=== PATIENT | male | born 1985 | race Caucasian/White ===

== ENCOUNTER 2017-03-21 19:42 | Emergency (ER) | payer OTHER ==
[~2017-03-21] VITALS: Ht 180.3 cm; Wt 108.9 kg
[~2017-03-21 19:42] MED LIST changes: -OXYC-865 PO; -PROM-110 PO
--- NOTE | 2017-03-21 19:48 | ER Report ---
History and Physical Time Seen By MD: 19:47 HPI/ROS CHIEF COMPLAINT: Fever, body aches HISTORY OF PRESENT ILLNESS: 31-year-old male presents ambulatory to the ER concerned about fever. He was seen by his primary care physician earlier today. That note was reviewed. He was started on Levaquin for suspected pneumonia. 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 Patient had chest x-ray that showed no obvious infiltrate that images reviewed. He should at a rapid influenza, which was negative per his report. Patient was told by his primary care if he had a fever over 1015 to come to the ER for evaluation. He had a fever to 102. He does not feel lightheaded, dizzy or syncopal. REVIEW OF SYSTEMS: Respiratory: As above Cardiovascular: No chest pain, no palpitations. Gastrointestinal: No vomiting, no abdominal pain. Musculoskeletal: No back pain. Allergies: Coded Allergies: No Known Drug Allergies (Unverified , 03/21/17) Home Meds Active Scripts Promethazine Hcl (PROMETHAZINE HCL) 25 Mg Tablet, 25 MG PO Q4H Y for cough and nausea suppression, #14 TAB Prov:JAMES ROGERS DO 03/21/17 Oxycodone Hcl/Acetaminophen (PERCOCET 5-325 MG TABLET) 1 Each Tablet, 1 EACH PO Q4-6H Y for pain or cough suppression, #10 Prov:KENJAMES Mart DO 03/21/17 Levofloxacin 500 Mg Tab (LEVAQUIN 500 MG TAB) 500 Mg Tablet, 500 MG PO QDAY, #7 TAB Prov:PHILIPP LI MD 03/21/17 Fluticasone Prop 50 Mcg Ns (FLONASE 50 MCG NS) 16 Gm Thermal.susp, 2 SPRAY NS DAILY, #1 BOT 11 Refills Prov:CARLOS ARCHER JR, MD 01/26/17 Discontinued Scripts Escitalopram Oxalate (ESCITALOPRAM OXALATE) 10 Mg Tablet, 10 MG PO QDAY, #30 TAB 3 Refills Prov:PHILIPP LI MD 03/21/17 Lorazepam (LORAZEPAM) 1 Mg Tab, 0.5 TAB ASDIRECTED BID Y for ANXIETY, #30 TAB Prov:PHILIPP LI MD 01/29/17 Reviewed Nurses Notes: Yes Old Medical Records Reviewed: Yes Hx Smoking: Yes (8-9 YEARS 1PPD) Smoking Status: Former Smoker Exposure to Second Hand Smoke?: No Hx Alcohol Use: Yes Constitutional Vital Sign - Last 24 Hours 03/21/17 03/21/17 03/21/17 03/21/17 19:55 20:30 21:00 21:30 Temp 100.1 Pulse 105 91 89 Resp 14 16 14 B/P (MAP) 112/97 118/58 (78) 126/69 (88) 119/61 (80) Pulse Ox 95 94 94 O2 Delivery Room Air Room Air Room Air 03/21/17 21:40 Pulse 95 Resp 16 B/P (MAP) 124/62 (82) Pulse Ox 97 O2 Delivery Room Air Physical Exam Vital signs stable, temperature 100.1, pulse ox normal General Appearance: The patient is alert, has no immediate need for airway protection and no current signs of toxicity. Ill appearing but not toxic., Anxious, mild to moderate distress HEENT: Pupils equal and round no injection. TMs normal, oropharynx without redness or exudate Respiratory: Chest is non tender, lungs are clear to auscultation. No wheezing or rails Cardiac: regular rate and rhythm Gastrointestinal: Abdomen is soft and non tender, no masses, bowel sounds normal. Musculoskeletal: Neck: Neck is supple and non tender. Extremities have full range of motion and are non tender. Skin: No rashes or lesions. DIFFERENTIAL DIAGNOSIS: After history and physical exam differential diagnosis was considered for adult fever including but not limited to viral syndromes including influenza, urinary tract infection, pneumonia and sepsis. Medical Decision Making Data Points Result Diagram: 03/21/17203903/21/172039 Laboratory Hematology Test 03/21/17 00:00 03/21/17 20:00 03/21/17 20:40 Urine Color Yellow Urine Clarity Slightly-cloudy Urine pH 7.0 pH (4.8-9.5) Urine Specific [place] 1.015 Urine Protein Negative mg/dL (NEGATIVE) Urine Glucose (UA) Negative mg/dL (NEGATIVE) Urine Ketones Negative mg/dL (NEGATIVE) Urine Blood Negative (NEGATIVE) Urine Nitrite Negative (NEGATIVE) Urine Bilirubin Negative (NEGATIVE) Urine Urobilinogen 4.0 mg/dL (0.2-1.9) Urine Leukocyte Esterase Negative (NEGATIVE) Urine RBC <1 /HPF (0-2/HPF) Urine WBC <1 /HPF (0-5/HPF) Urine Squamous Epithelial Cells None /LPF (</=FEW) Urine Bacteria Negative /HPF (NONE-FEW) Urine Mucus None /HPF (NONE-FEW) Influenza Virus Type A (PCR) Negative (NEGATIVE) Influenza Virus Type B (PCR) Negative (NEGATIVE) Group A Streptococcus Screen Negative (NEGATIVE) Red Blood Count 5.21 M/uL (4.00-5.60) Mean Corpuscular Volume 82.7 fL (80.0-96.0) Mean Corpuscular Hemoglobin 29.3 pg (26.0-33.0) Mean Corpuscular Hemoglobin Concent 35.4 g/dL (32.0-36.0) Red Cell Distribution Width 12.2 % (11.5-14.5) Mean Platelet Volume 9.0 fL (7.2-11.1) Neutrophils (%) (Auto) 21.3 % (39.4-72.5) Lymphocytes (%) (Auto) 41.5 % (17.6-49.6) Monocytes (%) (Auto) 34.8 % (4.1-12.4) Eosinophils (%) (Auto) 1.2 % (0.4-6.7) Basophils (%) (Auto) 1.2 % (0.3-1.4) Nucleated RBC Relative Count (auto) 0.7 /100WBC Neutrophils # (Auto) 0.3 K/uL (2.0-7.4) Lymphocytes # (Auto) 0.6 K/uL (1.3-3.6) Monocytes # (Auto) 0.5 K/uL (0.3-1.0) Eosinophils # (Auto) 0.0 K/uL (0.0-0.5) Basophils # (Auto) 0.0 K/uL (0.0-0.1) Nucleated RBC Absolute Count (auto) 0.01 K/uL Peripheral Blood Smear Yes Y/N Sodium Level 136 mmol/L (137-145) Potassium Level 3.7 mmol/L (3.5-5.0) Chloride Level 99 mmol/L (98-107) Carbon Dioxide Level 25 mmol/L (22-30) Blood Urea Nitrogen 11 mg/dl (9-21) Creatinine 0.90 mg/dl (0.66-1.25) Glomerular Filtration Rate Calc > 60.0 Random Glucose 98 mg/dl (75-110) Lactate 1.4 mmol/L (0.7-2.1) Calcium Level 8.7 mg/dl (8.4-10.2) Total Bilirubin 0.9 mg/dl (0.2-1.3) Aspartate Amino Transf (AST/SGOT) 25 U/L (0-35) Alanine Aminotransferase (ALT/SGPT) 42 U/L (0-56) Alkaline Phosphatase 65 U/L (0-126) C-Reactive Protein 5.7 mg/dl (<1.0) Total Protein 7.6 gm/dl (6.3-8.2) Albumin 4.0 g/dl (3.5-5.0) Chemistry Test 03/21/17 00:00 03/21/17 20:00 03/21/17 20:40 Urine Color Yellow Urine Clarity Slightly-cloudy Urine pH 7.0 pH (4.8-9.5) Urine Specific [place] 1.015 Urine Protein Negative mg/dL (NEGATIVE) Urine Glucose (UA) Negative mg/dL (NEGATIVE) Urine Ketones Negative mg/dL (NEGATIVE) Urine Blood Negative (NEGATIVE) Urine Nitrite Negative (NEGATIVE) Urine Bilirubin Negative (NEGATIVE) Urine Urobilinogen 4.0 mg/dL (0.2-1.9) Urine Leukocyte Esterase Negative (NEGATIVE) Urine RBC <1 /HPF (0-2/HPF) Urine WBC <1 /HPF (0-5/HPF) Urine Squamous Epithelial Cells None /LPF (</=FEW) Urine Bacteria Negative /HPF (NONE-FEW) Urine Mucus None /HPF (NONE-FEW) Influenza Virus Type A (PCR) Negative (NEGATIVE) Influenza Virus Type B (PCR) Negative (NEGATIVE) Group A Streptococcus Screen Negative (NEGATIVE) White Blood Count 1.5 k/uL (4.5-11.0) Red Blood Count 5.21 M/uL (4.00-5.60) Hemoglobin 15.2 g/dL (14.0-18.0) Hematocrit 43.1 % (42.0-52.0) Mean Corpuscular Volume 82.7 fL (80.0-96.0) Mean Corpuscular Hemoglobin 29.3 pg (26.0-33.0) Mean Corpuscular Hemoglobin Concent 35.4 g/dL (32.0-36.0) Red Cell Distribution Width 12.2 % (11.5-14.5) Platelet Count 198 K/uL (150-450) Mean Platelet Volume 9.0 fL (7.2-11.1) Neutrophils (%) (Auto) 21.3 % (39.4-72.5) Lymphocytes (%) (Auto) 41.5 % (17.6-49.6) Monocytes (%) (Auto) 34.8 % (4.1-12.4) Eosinophils (%) (Auto) 1.2 % (0.4-6.7) Basophils (%) (Auto) 1.2 % (0.3-1.4) Nucleated RBC Relative Count (auto) 0.7 /100WBC Neutrophils # (Auto) 0.3 K/uL (2.0-7.4) Lymphocytes # (Auto) 0.6 K/uL (1.3-3.6) Monocytes # (Auto) 0.5 K/uL (0.3-1.0) Eosinophils # (Auto) 0.0 K/uL (0.0-0.5) Basophils # (Auto) 0.0 K/uL (0.0-0.1) Nucleated RBC Absolute Count (auto) 0.01 K/uL Peripheral Blood Smear Yes Y/N Glomerular Filtration Rate Calc > 60.0 Lactate 1.4 mmol/L (0.7-2.1) Calcium Level 8.7 mg/dl (8.4-10.2) Total Bilirubin 0.9 mg/dl (0.2-1.3) Aspartate Amino Transf (AST/SGOT) 25 U/L (0-35) Alanine Aminotransferase (ALT/SGPT) 42 U/L (0-56) Alkaline Phosphatase 65 U/L (0-126) C-Reactive Protein 5.7 mg/dl (<1.0) Total Protein 7.6 gm/dl (6.3-8.2) Albumin 4.0 g/dl (3.5-5.0) Urinalysis Test 03/21/17 00:00 Urine Color Yellow Urine Clarity Slightly-cloudy Urine pH 7.0 pH (4.8-9.5) Urine Specific [place] 1.015 Urine Protein Negative mg/dL (NEGATIVE) Urine Glucose (UA) Negative mg/dL (NEGATIVE) Urine Ketones Negative mg/dL (NEGATIVE) Urine Blood Negative (NEGATIVE) Urine Nitrite Negative (NEGATIVE) Urine Bilirubin Negative (NEGATIVE) Urine Urobilinogen 4.0 mg/dL (0.2-1.9) Urine Leukocyte Esterase Negative (NEGATIVE) Urine RBC <1 /HPF (0-2/HPF) Urine WBC <1 /HPF (0-5/HPF) Urine Squamous Epithelial Cells None /LPF (</=FEW) Urine Bacteria Negative /HPF (NONE-FEW) Urine Mucus None /HPF (NONE-FEW) ED Course/Re-evaluation Clinical Indication for ER IV: Hydration, IV Access ED Course Patient was admitted to an examination room. H&P was done. The differential diagnoses was considered. Patient's vital signs are stable. He has no findings suggestive of sepsis. He had does appear in distress. He is treated with IV fluid hydration. His lactate is normal. His white count is low at 1.5. His ANC is 300. Patient has a repeat rapid flu performed which is negative. Patient was given medication for his symptoms. Decision to Disposition Date: Mar 21, 2017 Decision to Disposition Time: 20:49 Depart Departure Latest Vital Signs Vital Signs Date Time Temp Pulse Resp B/P (MAP) Pulse Ox O2 Delivery O2 Flow Rate FiO2 03/21/17 21:40 95 16 124/62 (82) 97 Room Air 03/21/17 19:55 100.1 Impression: Primary Impression: Fever Additional Impression: Leukopenia Condition: Improved Disposition: HOME OR SELF-CARE Referrals: PHILIPP LI MD (PCP) New Scripts Promethazine Hcl (PROMETHAZINE HCL) 25 Mg Tablet 25 MG PO Q4H Y for cough and nausea suppression, #14 TAB Prov: JAMES ROGERS DO 03/21/17 Oxycodone Hcl/Acetaminophen (PERCOCET 5-325 MG TABLET) 1 Each Tablet 1 EACH PO Q4-6H Y for pain or cough suppression, #10 Prov: JAMES ROGERS DO 03/21/17 Patient Instructions: Fever in Adults (ED) Additional Instructions: Follow-up with Dr. Li if unimproved in 2-3 days Problem Qualifiers Primary Impression: Fever Fever type: unspecified Qualified Codes: R50.9 - Fever, unspecified Additional Impression: Leukopenia Leukopenia type: neutropenia Neutropenia type: unspecified Qualified Codes : D70.9 - Neutropenia, unspecified JAMES ROGERS DO Mar 21, 2017 19:48
[2017-03-21] MEDS ORDERED: fentaNYL CITR 100 MCG/2 ML AMP IVP ONE (20:15)
[2017-03-21] MEDS ORDERED: NS(*) 0.9% 1000 ML BAG 1,000 ML IV ONE (20:15)
[2017-03-21] MEDS ORDERED: PROMETHAZINE HCL 25 MG TAB PO ONE (20:15)
[2017-03-21 21:17] LABS: PLATELET COUNT, AUTOMATED 198 K/uL (150-450)
[2017-03-21] MEDS ORDERED: PROMETHAZINE HCL 25 MG TAB TH 2 TAB/BOTTLE PO ONE (21:30)
[2017-03-21] MEDS ORDERED: oxyCODONE/ACETAMIN 5/325MG TH 2 TAB/BOTTLE PO ONE (21:30)
[2017-03-21] MEDS ORDERED: OXYC-865 PO (21:34)
[2017-03-21] MEDS ORDERED: PROM-110 PO (21:34)
[2017-03-21 21:40] VITALS: BP 124/62
== END 2017-03-21 21:52 | disposition home or self-care (01) ==
LOC: ER 20:01
DX: R50.9 Fever, unspecified (principal); D70.9 Neutropenia, unspecified
CPT/HCPCS: 81001; 83605; 85025; 86140; 87040; 87081; 87502; 87880; 96361; 96374; 99284; J3010; J7030; Q0169; 82040; 82247; 82310; 82374; 82435; 82565; 82947; 84075; 84132; 84155; 84295; 84450; 84460; 84520

== ENCOUNTER → 2017-03-21 | Outpatient (CLI) | payer OTHER ==
[~2017-03-21] MED LIST: AMOX-559 PO; AZIT-17 PO; CEPH500T7 PO; CYCL10TA29 PO; DIPH0.5D12 IM; ESCI10TA8 PO; FLU60SYR30 IM ONLY; FLUT16SP19 NS; HYDR-317 PO; HYDR-4309 PO; LEVO-85 PO; LOR1 ASDIRECTED; MELO-207 PO; OXYC-865 PO; PROM-110 PO
[2017-03-21 11:24] LABS: PLATELET COUNT, AUTOMATED 213 K/uL (150-450)
--- NOTE | 2017-03-21 11:36 | RADIOLOGY IMAGING REPORT ---
FACILITY: [facility] - [place] PATIENT NAME: Azam Ahumada : 1985 MR: [id number] V: [id number] EXAM DATE: ORDERING PHYSICIAN: PHILIPP DAWSON TECHNOLOGIST: Location: [facility] Patient: Azam Ahumada : 1985 Visit/Account:[id number] Date of Sevice: 03/21/2017 Exam type: CHEST PA AND LAT History: Cytopenia, leukopenia, anxiety depression and fever Comparison: None. Findings: The lungs are free of acute effusions, infiltrates or edema. Cardiac silhouette is normal in size. The trachea is in midline. Visualized bones are grossly unremarkable for age. IMPRESSION: 1. No acute cardiopulmonary process is seen Report Dictated By: Sully Robles MD at 03/21/2017 11:27 AM Report E-Signed By: Sully Robles MD at 03/21/2017 11:29 AM WSN:[id number]
== END ==
LOC: LAB 10:45
PROVIDERS: ATTEND Internal Medicine
DX: D69.2 Other nonthrombocytopenic purpura (principal); D72.89 Other specified disorders of white blood cells; F41.8 Other specified anxiety disorders; R50.9 Fever, unspecified
CPT/HCPCS: 36415; 71046; 82040; 82247; 82310; 82374; 82435; 82565; 82947; 84075; 84132; 84155; 84295; 84450; 84460; 84520; 85025

== ENCOUNTER 2017-03-23 11:55 | Outpatient (RCR) | payer OTHER ==
[2017-02-01 14:32] VITALS: BP 126/86
--- NOTE | 2017-02-01 14:42 | ONC Progress Note - NP.Halsey ---
Patient History Date of Service Feb 01, 2017 Reason For Visit/HPI Leukopenia and thrombocytopenia. Problem List (1) Leukopenia (2) Monocytosis (3) Thrombocytopenia Oncology History Azam is a 31-year-old male referred by Dr. Li for evaluation of abnormal blood work. He was not feeling well at the end of November, with symptoms of anxiety and depression and was seen by PCP. Blood work 12/20/2016 showed leukopenia but no thrombocytopenia. He developed a sinus infection 2 weeks ago and was treated with Z-pack and then Augmentin. Repeat blood work then showed platelet count os 35,000. WBC was 3.1, with 18% neutrophils, 2% bands, 34% lymphocytes, 16% monocytes, 6% eosinophils, 2% basophils and 22% atypical lymphocytes. H&H are normal at 16.5 and 46.7. Azam denies weight loss, lack of appetite, night sweats or recurrent infections. 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 He states BMBx was otherwise normal. He was treated with IVIG, then steroids and then rituximab. His ITP was in remission since he received rituximab. Medical History Past Medical History 1. History of ITP in 2014. 2. Anxiety and depression. 3. Sinusitis. Past Surgical History 1. Right knee surgery for meniscus repair. 2. Bone marrow biopsy 2014. Family History: Blood clots FATHER, Age:57 FH: CHF (congestive heart failure) FATHER, Age:57 FH: COPD (chronic obstructive pulmonary disease) FATHER, Age:57 FH: atrial fibrillation FATHER, Age:57 FH: diabetes mellitus FATHER, Age:57 MOTHER, Age:60 FH: hypertension FATHER, Age:57 FH: leukemia maternal grandfather FH: thyroid condition FATHER, Age:57 Psychosocial History Alcohol History He drinks a 6 pack of beer daily. Smoking History: No Smoking Status: Never Smoker Exposure to Second Hand Smoke?: No Medications and Allergies Active Scripts Lorazepam (LORAZEPAM) 1 Mg Tab, 0.5 TAB ASDIRECTED BID Y for ANXIETY, #30 TAB Prov:PHILIPP LI MD 01/29/17 Fluticasone Prop 50 Mcg Ns (FLONASE 50 MCG NS) 16 Gm Furman.susp, 2 SPRAY NS DAILY, #1 BOT 11 Refills Prov:CARLOS ARCHER JR, MD 01/26/17 Escitalopram Oxalate (ESCITALOPRAM OXALATE) 10 Mg Tablet, 10 MG PO QDAY, #30 TAB 3 Refills Prov:PHILIPP LI MD 12/20/16 Discontinued Scripts Amoxicillin/Pot Clav 875-125 Mg Tab (AUGMENTIN 875-125 TABLET) 1 Each Tablet, 1 TAB PO Q12H, #20 TAB 0 Refills Prov:CINTHIA FRANKLIN APRN PHYSICIAN PRACTICE ADMINISTRATOR-C 01/05/17 Allergies: Coded Allergies: No Known Drug Allergies (Unverified , 01/29/17) Review of System/Physical Exam Review of Systems Constitutional: Denies Appetite/Weight Change, Denies Fever/Chills/Sweating, Denies Recent Infection, Denies Other Cardiovascular: Denies Chest Pain, Denies Orthopnea, Denies Edema, Denies Palpitations, Denies Other Respiratory: Denies Cough, Denies Expectoration, Denies Hemoptysis, Denies Shortness of Breath, Denies Wheezing, Denies Other HEENT: No Tinnitus, No Hearing Problems, No Epistaxis, No Nasal Discharge, No Sore Throat, No Mouth Ulcers, No Other Gastrointestinal: No Nausea, No Vomitting, No Diarrhea, No Constipation, No Heart Burn, No Swallowing Difficulties, No Abdominal Pain, No Other Genitourinary: Denies Hematuria, Denies Dysuria, Denies Nocturia, Denies Other Endocrine: Denies Diabetes, Denies Hot Flashes, Denies Thyroid Issues, Denies Enlarged Lymph Nodes, Denies Other Hematologic: Denies Bruising, Denies Bleeding, Denies Fatigue, Denies Weakness , Denies Other Musculoskeletal: Denies Muscle Pain, Denies Joint Pain, Denies Bone Pain, Denies Other Neurologic: No Numbness of Hands, No Tingling of Hands, No Headaches, No Numbness of Feet, No Tingling of Feet, No Convulsions, No Other Psychiatric: Anxiety, Depression, No Other Skin: Denies Skin Rash, Denies Lumps, Denies Erythema, Denies Dry Skin, Denies Moist Skin, Denies Other Physical Exam Vital Signs Temperature: Pulse: BP Systolic: BP Diastolic: Respiratory Rate: O2 SAT: O2 Delivery: Height (inches) 71.00 Weight lb: 215 Weight oz: Weight Kg (Erickson): Pain: General: Stable, Well Developed, Well Nourished, Not In Acute Distress, Not Other HEENT: No Trauma, No Conjunctivitis, No Icterus, No Mucositis, No Oral Thrush, No Sinus Tenderness, No Other Neck: Supple, No Thyromegaly, No Other Lungs: Clear to Auscultation, Not Percussed Bilaterally, Not Other Heart: Regular Rate, Regular Rhythm, No Gallops, No Murmurs Abdomen: Soft and Nontender, No Hepatosplenomegaly (Mild splenomegaly), No Masses Extremities: No Cyanosis, No Clubbing, No Edema, No Other Lymphadenopathy: No None, No Cervical, No Subclavicular, No Axillary, No Peripheral, No Femoral, No Other Psychiatric: Mood appears normal, Affect appears normal Skin: No Skin Rashes, No Bruising, No Purpura, No Moist Desquamation, No Dry Desquamation, No Erythema, No Mild Erythema, No Moderate Erythema, No Severe Erythema, No Induration, No Other Assessment and Plan Assessment & Plan ASSESSMENT: Azam is a 31-year-old male with a previous history of ITP who presents with leukopenia, monocytosis, basophilia, thrombocytopenia and 22% atypical lymphocytes. He has no constitutional symptoms. I will obtain repeat labs today , including CBC, CMP, LDH, uric acid, peripheral smear and flow cytometry from peripheral blood. Given the concerning findings I will also obtain a bone marrow biopsy, which will be done under sedation per patient, on 02/07/2017. He will see Dr. Lauro Swenson in follow 02/09/2017. If flow cytometry is abnormal he will need to be sent to [place] to expedite bone marrow biopsy. PLAN: 1. CBC, CMP, LDH, uric acid, peripheral smear and flow cytometry from peripheral blood today. 2. Bone marrow biopsy under sedation 02/07/2017. 3. Patient to return to the office for follow up 02/09/2017 with CBC. 4. Transfuse platelets if bleeding or if platelet count < 10,000. 5. Patient to contact the office for any problems or concerns. I personally spent a total of 60 minutes. Of that 45 minutes was counseling/ coordination of patient's care. See my note above for details. GRACE TANG MD Feb 01, 2017 14:42
[2017-02-09 16:00] VITALS: BP 131/86
--- NOTE | 2017-02-16 19:16 | ONCOLOGY FOLLOW UP NOTE ---
EVENT DATE: 02/09/2017 DIAGNOSES 1. Thrombocytopenia. 2. Leukopenia. 3. Monocytosis. CHIEF COMPLAINT Patient is here today for followup of his thrombocytopenia and leukopenia. HEMATOLOGY HISTORY Azam is a 31-year-old male who was found to have abnormal blood work. His blood work on December 20, 2016 showed leukopenia, but no thrombocytopenia. He developed a sinus infection, treated with Z-Luis and Augmentin. Repeat blood work showed platelet count 35,000. White blood cells 3.1 with 18% neutrophils, 2% bands, 34% lymphocytes, 16% monocytes, 6% eosinophils, 2% basophils, 22% atypical lymphocytes. His H and H were normal at 16.5 and 46.7. Patient had flow cytometry of the peripheral blood done on February 01, 2017, which showed neutropenia and thrombocytopenia with mild granulocytic left shift, but no FISH abnormalities. He had a bone marrow aspiration biopsy which also came back negative for lymphoproliferative disorders or leukemias. PAST MEDICAL HISTORY 1. History of ITP in 2014. 2. Anxiety and depression. 3. Sinusitis. PAST SURGICAL HISTORY 1. Right knee surgery for meniscus repair. 2. Bone marrow biopsy in 2014. FAMILY HISTORY Maternal grandfather had leukemia. SOCIAL HISTORY Patient drinks about a six pack of beer daily. He is a never smoker. CURRENT MEDICATIONS 1. Ativan 1 mg 0.5 tablet twice daily for anxiety. 2. Flonase 50 mcg nasal spray two sprays daily. 3. Citalopram oxalate 10 mg once daily. ALLERGIES No known drug allergies. HISTORY OF PRESENT ILLNESS Patient is here today to discuss the results of his bone marrow aspiration biopsy for his leukopenia and thrombocytopenia. He is complaining of intermittent headache and weakness and fatigue, but other than that he is really doing very well. REVIEW OF SYSTEMS CONSTITUTIONAL: No appetite or weight change. No fever, chills or sweating. No recent infection. HEENT: Ears: No tinnitus or hearing problem. Nose: No nasal discharge or epistaxis. Throat: No sore throat or mouth ulcers. Eyes: No diplopia or visual changes. RESPIRATORY: No shortness of breath. No cough, expectoration or hemoptysis. CARDIOVASCULAR: No chest pain, orthopnea, or paroxysmal nocturnal dyspnea (PND) . No edema. No palpitations. GASTROINTESTINAL: No nausea or vomiting. No diarrhea or constipation. No change in bowel movements. No heartburn or swallowing difficulties. No abdominal pain. No jaundice. No hematemesis, melena or rectal bleeding. GENITOURINARY: No hematuria or dysuria. MUSCULOSKELETAL: No pain in the muscles, joints or bones. NEUROLOGICAL: He has intermittent headache. HEMATOLOGIC/LYMPHATIC: He is weak, tired and fatigued. SKIN: No skin rash or lumps. PSYCHIATRIC: No anxiety or depression. PHYSICAL EXAMINATION GENERAL: Looks stable. Well-developed, well-nourished, and in no acute distress. VITAL SIGNS: Blood pressure 131/86, pulse 70 per minute, temperature 97.8, pulse ox 95% on room air. HEENT: Head: Atraumatic. No sinus tenderness to palpation. Eyes: No icterus or conjunctivitis. Mouth and throat: No oral thrush or mucositis. NECK: Supple. No cervical or supraclavicular lymphadenopathy. LUNGS: Clear to auscultation and percussion bilaterally. HEART: Regular rate and rhythm. No gallops, murmurs, clicks or rubs. ABDOMEN: Soft and lax. No tenderness. No hepatosplenomegaly. No masses. EXTREMITIES: No cyanosis, clubbing or edema. LYMPHATICS: No peripheral lymphadenopathy. NEUROLOGICAL: Conscious, alert and oriented times three. No focal motor or sensory deficits. PSYCHIATRIC: Mood and affect appear normal. SKIN: No skin rash, bruise or purpuric eruption. PSYCHIATRIC: No anxiety or depression. ASSESSMENT Leukopenia with thrombocytopenia could be due to his chronic alcohol intoxication. His bone marrow aspiration biopsy and peripheral blood for flow cytometry both came back negative for lymphoproliferative disorder or leukemias. I believe this could be due to his chronic alcohol intake. I advised the patient to quit alcohol for the next two weeks and we will repeat his blood count at that time. If his blood count does not recover then I will proceed with further investigation including platelet-associated antibodies, as the patient has a history of ITP in the past and neutrophil-associated antibodies, to be sure that the patient does not have any immune mechanism for his underlying blood disorder. I explained that to the patient and he is agreeable with the plan of management. PLAN 1. Quit alcohol for the next two weeks. 2. Patient to return in two weeks with CBC. 3. Patient is to contact us for any new concerns or complaints. YEIMI
[2017-02-22 09:13] VITALS: BP 136/74
[2017-02-22 09:31] LABS: PLATELET COUNT, AUTOMATED 105 K/uL (150-450)
[2017-02-23 08:52] VITALS: BP 134/88
--- NOTE | 2017-02-23 19:32 | ONCOLOGY FOLLOW UP NOTE ---
EVENT DATE: February 23, 2017 DIAGNOSES 1. Thrombocytopenia. 2. Leukopenia. 3. Monocytosis. CHIEF COMPLAINT Patient is here today for followup of his thrombocytopenia and leukopenia. HEMATOLOGY HISTORY Azam is a 31-year-old male who was found to have abnormal blood work. His blood work on December 20, 2016 showed leukopenia, but no thrombocytopenia. He developed a sinus infection, treated with Z-Lius and Augmentin. Repeat blood work showed platelet count 35,000. White blood cells 3.1 with 18% neutrophils, 2% bands, 34% lymphocytes, 16% monocytes, 6% eosinophils, 2% basophils, 22% atypical lymphocytes. His H and H were normal at 16.5 and 46.7. Patient had flow cytometry of the peripheral blood done on February 01, 2017, which showed neutropenia and thrombocytopenia with mild granulocytic left shift, but no FISH abnormalities. He had a bone marrow aspiration biopsy which also came back negative for lymphoproliferative disorders or leukemias. HISTORY OF PRESENT ILLNESS Patient is here today for followup of his leukopenia and thrombocytopenia. He is totally asymptomatic. As per patient, he quit alcohol during this two weeks. He denies any complaints today. PAST MEDICAL HISTORY 1. History of ITP in 2014. 2. Anxiety and depression. 3. Sinusitis. PAST SURGICAL HISTORY 1. Right knee surgery for meniscus repair. 2. Bone marrow biopsy in 2014. FAMILY HISTORY Maternal grandfather had leukemia. SOCIAL HISTORY Patient drinks about a six pack of beer daily. He is a never smoker. CURRENT MEDICATIONS 1. Ativan 1 mg 0.5 tablet twice daily for anxiety. 2. Flonase 50 mcg nasal spray two sprays daily. 3. Citalopram oxalate 10 mg once daily. ALLERGIES No known drug allergies. REVIEW OF SYSTEMS CONSTITUTIONAL: No appetite or weight change. No fever, chills or sweating. No recent infection. HEENT: Ears: No tinnitus or hearing problem. Nose: No nasal discharge or epistaxis. Throat: No sore throat or mouth ulcers. Eyes: No diplopia or visual changes. RESPIRATORY: No shortness of breath. No cough, expectoration or hemoptysis. CARDIOVASCULAR: No chest pain, orthopnea, or paroxysmal nocturnal dyspnea (PND) . No edema. No palpitations. GASTROINTESTINAL: No nausea or vomiting. No diarrhea or constipation. No change in bowel movements. No heartburn or swallowing difficulties. No abdominal pain. No jaundice. No hematemesis, melena or rectal bleeding. GENITOURINARY: No hematuria or dysuria. MUSCULOSKELETAL: No pain in the muscles, joints or bones. NEUROLOGICAL: He has intermittent headache. HEMATOLOGIC/LYMPHATIC: He is weak, tired and fatigued. SKIN: No skin rash or lumps. PSYCHIATRIC: No anxiety or depression. PHYSICAL EXAMINATION GENERAL: Looks stable. Well-developed, well-nourished, and in no acute distress. VITAL SIGNS: Blood pressure 134/88, pulse 73 per minute, respirations 16 per minute, temperature 97.2, pulse ox 95% on room air. HEENT: Head: Atraumatic. No sinus tenderness to palpation. Eyes: No icterus or conjunctivitis. Mouth and throat: No oral thrush or mucositis. NECK: Supple. No cervical or supraclavicular lymphadenopathy. LUNGS: Clear to auscultation and percussion bilaterally. HEART: Regular rate and rhythm. No gallops, murmurs, clicks or rubs. ABDOMEN: Soft and lax. No tenderness. No hepatosplenomegaly. No masses. EXTREMITIES: No cyanosis, clubbing or edema. LYMPHATICS: No peripheral lymphadenopathy. NEUROLOGICAL: Conscious, alert and oriented times three. No focal motor or sensory deficits. PSYCHIATRIC: Mood and affect appear normal. SKIN: No skin rash, bruise or purpuric eruption. PSYCHIATRIC: No anxiety or depression. DIAGNOSTIC DATA CBC showed a white count of 2.1, hemoglobin 15.6, hematocrit 44.9, platelets 105 ,000. Chem panel was totally normal. His platelet count improved from 34,000 to 35,000 to 59,000 and currently 105,000 after he quit alcohol. ASSESSMENT Leukopenia with thrombocytopenia most probably due to chronic alcohol use. His bone marrow aspiration biopsy and peripheral blood for flow cytometry all came back negative for lymphoproliferative disorder or leukemia. Patient quit alcohol for the last two wks, and his platelet count improved from 34,000 and is currently 105,000. His white count is still low at 2.1. The patient is taking vitamin B complex supplement, and I am planning to add folic acid 1 mg daily. I am planning to check his count once monthly, and I will see him in three months at that time. If his blood count improves completely and while the patient is quitting his alcohol, then alcohol is the reason for his bone marrow suppression. I explained that to the patient and he is agreeable with the plan of management. PLAN 1. Continue to quit alcohol. 2. CBC to be checked once monthly. 3. Patient is to return in three months with CBC. 4. Continue vitamin B complex supplement. 5. Folic acid 1 mg daily. 6. Patient is to contact us for any new concerns or complaints. YEIMI
[~2017-03-23] VITALS: Ht 180.3 cm; Wt 111.7 kg
[~2017-03-23 11:55] MED LIST changes: +OXYC-865 PO; +PROM-110 PO
[2017-03-23 12:18] LABS: PLATELET COUNT, AUTOMATED 208 K/uL (150-450)
[2017-03-23 12:31] VITALS: BP 130/79
--- NOTE | 2017-03-23 20:28 | ONCOLOGY FOLLOW UP NOTE ---
EVENT DATE: March 23, 2017 DIAGNOSES 1. Thrombocytopenia. 2. Leukopenia. 3. Monocytosis. CHIEF COMPLAINT Patient is here today for followup of his thrombocytopenia and neutropenia. HEMATOLOGY HISTORY Azam is a 31-year-old male who was found to have abnormal blood work. His blood work on December 20, 2016 showed leukopenia, but no thrombocytopenia. He developed a sinus infection, treated with Z-Luis and Augmentin. Repeat blood work showed platelet count 35,000. White blood cells 3.1 with 18% neutrophils, 2% bands, 34% lymphocytes, 16% monocytes, 6% eosinophils, 2% basophils, 22% atypical lymphocytes. His H and H were normal at 16.5 and 46.7. Patient had flow cytometry of the peripheral blood done on February 01, 2017, which showed neutropenia and thrombocytopenia with mild granulocytic left shift, but no FISH abnormalities. He had a bone marrow aspiration biopsy which also came back negative for lymphoproliferative disorders or leukemias. HISTORY OF PRESENT ILLNESS Patient is here today for followup of his neutropenia and thrombocytopenia. He is complaining of nasal discharge, cough and shortness of breath, and nausea associated with upper respiratory tract infection. He has generalized aches. He has sinus headache. He is weak, tired and fatigued. PAST MEDICAL HISTORY 1. History of ITP in 2015. 2. Anxiety and depression. 3. Sinusitis. PAST SURGICAL HISTORY 1. Right knee surgery for meniscus repair. 2. Bone marrow biopsy in 2014. FAMILY HISTORY Maternal grandfather had leukemia. SOCIAL HISTORY Patient drinks about a six pack of beer daily. He is a never smoker. CURRENT MEDICATIONS 1. Ativan 1 mg 0.5 tablet twice daily for anxiety. 2. Flonase 50 mcg nasal spray two sprays daily. 3. Citalopram oxalate 10 mg once daily. ALLERGIES No known drug allergies. REVIEW OF SYSTEMS CONSTITUTIONAL: No appetite or weight change. No fever, chills or sweating. No recent infection. HEENT: Ears: No tinnitus or hearing problem. Nose: He has runny nose. Throat: No sore throat or mouth ulcers. Eyes: No diplopia or visual changes. RESPIRATORY: He has cough and shortness of breath. CARDIOVASCULAR: No chest pain, orthopnea, or paroxysmal nocturnal dyspnea (PND) . No edema. No palpitations. GASTROINTESTINAL: He has nausea. GENITOURINARY: No hematuria or dysuria. MUSCULOSKELETAL: He has generalized aches. NEUROLOGICAL: He has sinus headache. HEMATOLOGIC/LYMPHATIC: He is weak, tired and fatigued. SKIN: No skin rash or lumps. PSYCHIATRIC: No anxiety or depression. PHYSICAL EXAMINATION GENERAL: Looks stable. Well-developed, well-nourished, and in no acute distress. VITAL SIGNS: Blood pressure 130/79, pulse 80 per minute, respirations 16 per minute, temperature 98, pulse ox 96% on room air. HEENT: Head: Atraumatic. No sinus tenderness to palpation. Eyes: No icterus or conjunctivitis. Mouth and throat: No oral thrush or mucositis. NECK: Supple. No cervical or supraclavicular lymphadenopathy. LUNGS: Clear to auscultation and percussion bilaterally. HEART: Regular rate and rhythm. No gallops, murmurs, clicks or rubs. ABDOMEN: Soft and lax. No tenderness. No hepatosplenomegaly. No masses. EXTREMITIES: No cyanosis, clubbing or edema. LYMPHATICS: No peripheral lymphadenopathy. NEUROLOGICAL: Conscious, alert and oriented times three. No focal motor or sensory deficits. PSYCHIATRIC: Mood and affect appear normal. SKIN: No skin rash, bruise or purpuric eruption. PSYCHIATRIC: No anxiety or depression. DIAGNOSTIC DATA CBC done on March 18, 2017 did reveal white count 1.5, hemoglobin 15.2, hematocrit 43.1 and platelets 198,000. ANC is 0.3 and ALC 0.6. 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 This missense alteration has not been previously reported in the literature and/or public data and its clinical significance is uncertain. ASSESSMENT Neutropenia with thrombocytopenia could be due to his chronic alcohol use. Patient is off alcohol for some time currently and and his platelet count currently is normal at 198,000, but his white count and the neutrophil count are dropping gradually. His total white count is 1.5 and ANC is 0.3. 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 Because of the association of the SETBP1 alteration with bone marrow disorders, I am planning to refer the patient to the [facility] for further evaluation and management. If the patient is having early myelodysplastic syndrome then his best option for his age will be bone marrow transplant. I explained that the patient and the patient is agreeable to the referral to the [facility]. PLAN 1. Referral to the [facility]. 2. Patient to return after the above for further evaluation and management. 3. Patient is to contact us for any new concerns or complaints. YEIMI
== END 2017-05-01 ==
LOC: SPU 11:55
PROVIDERS: ATTEND Internal Medicine Hematology
DX: D72.819 Decreased white blood cell count, unspecified (principal); D72.821 Monocytosis (symptomatic); D69.6 Thrombocytopenia, unspecified; Z79.899 Other long term (current) drug therapy; R53.1 Weakness; R53.83 Other fatigue
CPT/HCPCS: 36415; 82040; 82247; 82310; 82374; 82435; 82565; 82947; 83615; 84075; 84132; 84155; 84295; 84450; 84460; 84520; 84550; 85025; 88184; 88185; 88189; 99202; 99212

== ENCOUNTER 2017-05-31 09:00 | Outpatient (RCR) | payer OTHER ==
[2017-05-31 09:17] VITALS: BP 121/82
[2017-05-31 09:21] LABS: PLATELET COUNT, AUTOMATED 199 K/uL (150-450)
== END 2017-06-22 11:26 | disposition home or self-care (01) ==
LOC: SPU 09:00
PROVIDERS: ATTEND Internal Medicine Hematology
DX: D69.6 Thrombocytopenia, unspecified (principal); D72.819 Decreased white blood cell count, unspecified; Z86.2 Personal history of diseases of the blood and blood-forming organs and certain disorders involving the immune mechanism
CPT/HCPCS: 36415; 85025

== ENCOUNTER → 2017-09-24 | Outpatient (CLI) | payer OTHER ==
--- NOTE | 2017-09-24 18:12 | RADIOLOGY IMAGING REPORT ---
FACILITY: [facility] PATIENT NAME: Azam Ahumada : 1985 MR: [id number] V: [id number] EXAM DATE: ORDERING PHYSICIAN: SHAHLA SCHRADER TECHNOLOGIST: Location: [facility] [place] Patient: Azam Ahumada : 1985 Visit/Account:[id number] Date of Sevice: 09/24/2017 Exam type: KNEE 4 VIEW RIGHT History: Right knee pain, injury Sunday Comparison: MR of the right knee March 13, 2016. Findings: There is mild narrowing of the medial compartment of the right knee. There is no evidence of acute f racture or dislocation or lytic or blastic bone lesions. No radiopaque soft tissue foreign bodies id entified IMPRESSION: 1. Mild narrowing of the medial compartment of the right knee Report Dictated By: Sully Robles MD at 09/24/2017 6:07 PM Report E-Signed By: Sully Robles MD at 09/24/2017 6:09 PM WSN:[id number]
== END ==
LOC: RAD 17:01
PROVIDERS: ATTEND Orthopaedic Surgery Hand Surgery
DX: M17.11 Unilateral primary osteoarthritis, right knee (principal)
CPT/HCPCS: 73564

== ENCOUNTER → 2017-09-28 | Outpatient (CLI) | payer OTHER ==
--- NOTE | 2017-09-28 09:52 | RADIOLOGY IMAGING REPORT ---
FACILITY: [facility] [place] PATIENT NAME: Azam Ahumada : 1985 MR: [id number] V: [id number] EXAM DATE: ORDERING PHYSICIAN: SHAHLA SCHRADER TECHNOLOGIST: Location: [facility] - [place] Patient: Azam Ahumada : 1985 Visit/Account:[id number] Date of Sevice: 09/28/2017 MRI right knee without contrast Indication: Knee pain. Medial sided pain. Prior meniscal surgery. Reinjury. Comparison: 03/13/2016 Technique: Multiplanar, multisequence MRI examination is performed of the right knee without contrast . Findings: Examination of the medial compartment demonstrates a focal truncated appearance of the inner margin o f the posterior horn of the medial meniscus at the site of prior meniscal tearing consistent with pos toperative change. Best appreciated on the coronal sequence on today's exam, there is an undersurface , horizontal tear involving the body of the medial meniscus which was not seen previously. No displac ed fragment. The articular cartilage surfaces are normal. Examination of the lateral compartment demonstrates a normal lateral meniscus. The articular cartilag e surfaces are normal. Examination of the patellofemoral compartment demonstrates normal patellar and normal trochlear surfa vitaly. ACL and PCL are intact. The MCL is intact. The lateral collateral ligament complex is maintained. The extensor mechanism is intact. A small joint effusion is seen. IMPRESSION: 1. Undersurface, horizontal tear of the body of the right knee medial meniscus which is a new finding since 03/13/2016. 2. Post debridement changes involving the posterior horn of the medial meniscus near the junction wit h the meniscal body at the site of prior meniscal tear. 3. Small joint effusion. Report Dictated By: Vinay Leija at 09/28/2017 9:35 AM Report E-Signed By: Vinay Leija at 09/28/2017 9:47 AM WSN:[id number]
== END ==
LOC: MRI 02:02
PROVIDERS: ATTEND Orthopaedic Surgery Hand Surgery
DX: S83.206A Unspecified tear of unspecified meniscus, current injury, right knee, initial encounter (principal); M25.461 Effusion, right knee

== ENCOUNTER → 2017-10-24 | Outpatient (CLI) | payer OTHER ==
[~2017-10-24] MED LIST changes: +CROM13SP10 NS; +MULT-1335 PO
[2017-10-24 08:48] LABS: PLATELET COUNT, AUTOMATED 167 K/uL (150-450)
== END ==
LOC: LAB 08:08
PROVIDERS: ATTEND Anesthesiology
DX: Z01.812 Encounter for preprocedural laboratory examination (principal); S83.209A Unspecified tear of unspecified meniscus, current injury, unspecified knee, initial encounter
CPT/HCPCS: 36415; 82040; 82247; 82310; 82374; 82435; 82565; 82947; 84075; 84132; 84155; 84295; 84450; 84460; 84520; 85025; 85610

== ENCOUNTER 2017-10-26 03:31 | Day surgery (SDC) | payer OTHER ==
[~2017-10-26] VITALS: Ht 180.3 cm; Wt 97.1 kg
[2017-10-26] MEDS ORDERED: ceFAZolin(*) 2GM/D5W 50ML 50 ML IVPB ONE (09:15)
[2017-10-26] MEDS ORDERED: NORMOSOL R SOLN(*) 1000 ML BAG 1,000 ML IV PRN (09:15)
[2017-10-26] MEDS ORDERED: MIDAZOLAM 2 MG/2 ML VIAL IVP PRN (09:15)
[2017-10-26] MEDS ORDERED: CELECOXIB 200 MG CAP PO ONE (09:15)
[2017-10-26] MEDS ORDERED: LIDOCAINE/SOD BICARB 8.4% SYR ID ONE (09:15)
[2017-10-26] MEDS ORDERED: FAMOTIDINE 20 MG TAB PO ONE (09:15)
[2017-10-26] MEDS ORDERED: methylPREDNIS ACE 40MG/ML VIAL ONE ×2 (10:37→10:42)
[2017-10-26] MEDS ORDERED: LIDOCAINE MPF 1% 5 ML VIAL ONE (10:37)
[2017-10-26] MEDS ORDERED: NEOMYCIN/POLYMYX/BACITR 30 GM TP ONE (10:38)
[2017-10-26] MEDS ORDERED: ROPIVACAINE 0.2% 20 ML VIAL ONE (10:38)
[2017-10-26] MEDS ORDERED: BETAMETHASONE/ACETATE 6 MG/1ML ONE ×2 (10:39→10:40)
[2017-10-26 11:17] VITALS: BP 141/93
[2017-10-26] MEDS ORDERED: PROPOFOL EMUL(*) 10MG/ML 20 ML 40 ML ONE (13:40)
[2017-10-26] MEDS ORDERED: ONDANSETRON 4 MG/2 ML VIAL ONE (13:40)
[2017-10-26] MEDS ORDERED: fentaNYL CITR 100 MCG/2 ML AMP ONE ×3 (13:40→15:13)
[2017-10-26] MEDS ORDERED: DEXAMETHASONE SOD PHOS 10MG/ML ONE (13:40)
[2017-10-26] MEDS ORDERED: LACTATED RINGER 3000 ML BAG IR ONE (14:07)
[2017-10-26] MEDS ORDERED: HYDR-385 PO (14:58)
[2017-10-26] MEDS ORDERED: CEPH500T7 PO (14:59)
[2017-10-26] MEDS ORDERED: APAP/HYDROCODONE 325/5 TAB PO ONE (15:35)
--- NOTE | 2017-10-26 18:18 | OPERATIVE REPORT 1 ---
EVENT DATE: October 26, 2017 SURGEON: Ravinder Ibrahim MD ANESTHESIOLOGIST: Cristhian Odonnell MD ANESTHESIA: General. SALES [employer]OR RECRUITMENT REPRESENTATIVE: Akash Cano PA-C PREOPERATIVE DIAGNOSIS Right knee posteromedial meniscus horizontal tear with some synovitic tissue. POSTOPERATIVE DIAGNOSES 1. Moderate synovitic tissue at patellofemoral joint with loose body in lateral gutter. 2. Extensive posterior medial meniscus tearing. 3. Slight free edge tearing of lateral meniscus. PROCEDURE PERFORMED 1. Right knee arthroscopy with removal of loose body. 2. Subtotal posteromedial meniscectomy. 3. Debridement of free edge of lateral meniscus with excision of synovitic tissue of patellofemoral joint. 4. Steroid injection in the knee. ESTIMATED BLOOD LOSS Minimal. INTRAVENOUS FLUIDS 900 SPECIMENS No specimens. COMPLICATIONS No complications. IMPLANTS USED No implants. TOURNIQUET TIME See anesthetic record. SUMMARY OF PROCEDURE The patient was brought into the operating room and placed on the OR table in the supine position. After obtaining adequate general anesthesia, the right lower extremity was prepped and draped in the usual sterile fashion. The limb was exsanguinated, and the tourniquet was inflated. We utilized the same arthroscopic portals, and immediately evident was the fact that it was quite difficult to maneuver within the joint, probably because of scar tissue anteriorly. We were able to get good visualization of the patellofemoral joint. There was a moderate amount of synovitic tissue which was debrided with a shaver. There was no recurrence with respect to a stricture or plica. When we checked the gutters, the medial gutter was clear, but the lateral gutter had a cube-shaped, firm piece of material which was something that looked to me like it could certainly cause symptoms. We switched the camera over to the medial side and came in laterally with a grasper to remove this structure and took a photograph of it. We then moved to the medial gutter after having switched the camera back to the lateral side and then flowed down into the medial compartment. There was rather extensive posteromedial meniscus tearing as described on the MRI report. We used a probe to palpate this region, but it was actually very difficult to move the probe back and forth, so I turned the camera around and looked back at the entry point, and it looked like there was a very large lesion on the anterior aspect of the knee. It actually appeared to be similar to what we sometimes see in a cyclops lesion except more by the portal than it was actually over at the notch. We used an 11 blade to extend the incision under direct visualization while watching the tip of the blade entering the joint. After doing this, also used a shaver to debride the dense scar tissue on the entry point within the joint. Once this was done, I had much greater mobility for the tools. We used a variety of different straight and curved biters, intermittently going back to the shaver to clear debris and then finally using a radiofrequency probe to heat the cut surface. This seemed to work quite well. It smoothed out the tissue nicely. We then moved to the notch. There was an intact ACL and PCL. There was no loose body. We then moved to the lateral compartment where he looked for the most part okay, but there was a little bit of free edge fraying on the lateral meniscus which was debrided with a shaver and then the radiofrequency probe. Finally, we put the camera back in on the medial side in the patellofemoral joint and finished some of the synovectomy anterolaterally, after which a spinal needle was placed. The knee was drained. Arthroscopic portals were closed with nylon, and the knee was given a steroid injection using 80 mg of Depo-Medrol and 8 mL of lidocaine. A dry, sterile dressing with an Rell bandage wrap was then applied. He was awakened and transferred to the recovery area in stable condition. YEIMI
== END 2017-10-26 16:05 | disposition home or self-care (01) ==
LOC: OR 03:31
PROVIDERS: ATTEND Orthopaedic Surgery Hand Surgery
DX: S83.281A Other tear of lateral meniscus, current injury, right knee, initial encounter (principal); S83.242A Other tear of medial meniscus, current injury, left knee, initial encounter
CPT/HCPCS: 29880; J1030; J1100; J2001; J2250; J2405; J2704; J3010; J0690; J0702; J2795

== ENCOUNTER 2017-11-14 09:45 | Outpatient (RCR) | payer OTHER ==
--- NOTE | 2017-11-01 15:36 | PT INITIAL EVALUATION ---
MEDICAL DIAGNOSIS: R knee scope TREATMENT DIAGNOSIS: same DATE OF ONSET: 10/26/17 SUBJECTIVE: Azam Ahumada presents to physical therapy status post R knee scope on September from an accident that occurred approximately 3 weeks ago when he was getting up from his knees after sanding for a while and heard a loud pop. He reports that the pain is getting better with each passing day since surgery. He reports that he has been pushing to increase the range of motion each day and the pain continues to decrease. He reports that this procedure has been a lot less painful than the last procedure that was done February 2016. He denies any resting pain. He reports that he has been icing and elevating. He feels like is walking well. He reports minimal swelling and some bruising. Pain location is inferior patella, and posterior capsule, and superior patella and described as sore. Pain scale is 0 on a ten point pain scale. Pain is worse with kneeling, knee extension, knee flexion end ranges and better with ice and movement. 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 0 degrees with quad set. flexion: 115 degrees. Strength: B hip flexion, abduction, adduction, extension: 5/5 with no pain. L knee extension and flexion: 5/5 with no pain. B ankle PF and DF: 5/5 with no pain. R knee extension and flexion: did not test due to recent surgical intervention. Palpation: He was tender to palpation in the following areas: R inferior and superior patella, and posterior capsule Sensation: WNL's with L2-S2 Special Tests: R knee lag test: 10 degrees of lag. Portal incisions healing well with no signs or symptoms of infection. Mobility: Independent Gait: He demonstrated 100% normal gait mechanics without any antalgic gait ASSESSMENT: Azam will benefit from skilled physical therapy to address the listed impairments to improve function and return to prior level of function. Short Term Goals 4 weeks: Pt will improve R knee AROM from baseline to full AROM of R knee (equal to L knee) to improve function and return to prior level of function. 4 weeks: Pt will improve R knee extension and flexion strength from baseline to greater than 4+/5 with no R knee pain. Patient's Goals get back to work, jogging, playing with his kids, and utilizing weight machines at his gym PLAN: Patient to be seen for Manual Therapy/STM/MET Strengthening/condition Ice/Heat Range of Motion Work Hardening/Cond Stretching Neuromuscular Re-ed Closed Chain Program Electrical Stim Gait Trg/Balance Trg Home Exercise Program Therapeutic Activities 2x/Week for 4 Weeks If you have any questions, comments, or concerns about this report or plan, please contact me at . Thank you, Benjamín Moser, PT, DPT MTDD
[~2017-11-14 09:45] MED LIST changes: +HYDR-385 PO
== END 2017-11-14 18:00 | disposition home or self-care (01) ==
LOC: PT 09:45
PROVIDERS: ATTEND Orthopaedic Surgery Hand Surgery
DX: Z47.89 Encounter for other orthopedic aftercare (principal); M25.561 Pain in right knee
CPT/HCPCS: 97161

== ENCOUNTER 2017-11-23 14:29 | Outpatient (RCR) | payer OTHER ==
[2017-11-14 10:57] VITALS: BP 125/70
[2017-11-14 11:00] LABS: PLATELET COUNT, AUTOMATED 198 K/uL (150-450)
[~2017-11-23 14:29] MED LIST changes: -HYDR-4309 PO; +HYDR-653 PO
[2017-11-23 14:30] VITALS: BP 129/80
[2017-11-23] MEDS ORDERED: INFLUENZA VIRUS VAC 0.5ML SYR IM ONLY ONE (14:55)
--- NOTE | 2017-11-24 09:59 | [facility] ONCOLOGY NOTE ---
EVENT DATE: November 23, 2017 DIAGNOSES 1. Thrombocytopenia. 2. Leukopenia. 3. Monocytosis. CHIEF COMPLAINT Patient is here today for followup of his thrombocytopenia and neutropenia. HEMATOLOGY HISTORY Azam is a 32-year-old male who was found to have abnormal blood work. His blood work on December 20, 2016 showed leukopenia, but no thrombocytopenia. He developed a sinus infection, treated with Z-Luis and Augmentin. Repeat blood work showed platelet count 35,000. White blood cells 3.1 with 18% neutrophils, 2% bands, 34% lymphocytes, 16% monocytes, 6% eosinophils, 2% basophils, 22% atypical lymphocytes. His H and H were normal at 16.5 and 46.7. Patient had flow cytometry of the peripheral blood done on February 01, 2017, which showed neutropenia and thrombocytopenia with mild granulocytic left shift, but no FISH abnormalities. He had a bone marrow aspiration biopsy which also came back negative for lymphoproliferative disorders or leukemias. Patient was referred to the [facility] at [facility] and after searching for his gene abnormality there was no associated adverse effect or it is unknown so no further action was taken. HISTORY OF PRESENT ILLNESS Patient is here today for followup of his thrombocytopenia and neutropenia. He is doing fine currently except having some pain in his right knee after his recent right knee arthroscopic surgery for meniscus repair. PAST MEDICAL HISTORY 1. History of ITP in 2014. 2. Anxiety and depression. 3. Sinusitis. PAST SURGICAL HISTORY 1. Right knee surgery for meniscus repair. 2. Bone marrow biopsy in 2014. FAMILY HISTORY Maternal grandfather had leukemia. SOCIAL HISTORY Patient drinks about a six pack of beer daily. He is a never smoker. CURRENT MEDICATIONS 1. Ativan 1 mg 0.5 tablet twice daily for anxiety. 2. Flonase 50 mcg nasal spray two sprays daily. 3. Citalopram oxalate 10 mg once daily. ALLERGIES No known drug allergies. REVIEW OF SYSTEMS CONSTITUTIONAL: No appetite or weight change. No fever, chills or sweating. No recent infection. HEENT: Ears: No tinnitus or hearing problem. Nose: He has runny nose. Throat: No sore throat or mouth ulcers. Eyes: No diplopia or visual changes. RESPIRATORY: He has cough and shortness of breath. CARDIOVASCULAR: No chest pain, orthopnea, or paroxysmal nocturnal dyspnea (PND). No edema. No palpitations. GASTROINTESTINAL: He has nausea. GENITOURINARY: No hematuria or dysuria. MUSCULOSKELETAL: He has pain in the right knee after his recent surgery for right meniscus repair. NEUROLOGICAL: He has sinus headache. HEMATOLOGIC/LYMPHATIC: He is weak, tired and fatigued. SKIN: No skin rash or lumps. PSYCHIATRIC: No anxiety or depression. PHYSICAL EXAMINATION GENERAL: Looks stable. Well-developed, well-nourished, and in no acute distress. VITAL SIGNS: Blood pressure 129/80, pulse 89 per minute, respirations 16 per minute, temperature 96.6, pulse ox 93% on room air. HEENT: Head: Atraumatic. No sinus tenderness to palpation. Eyes: No icterus or conjunctivitis. Mouth and throat: No oral thrush or mucositis. NECK: Supple. No cervical or supraclavicular lymphadenopathy. LUNGS: Clear to auscultation and percussion bilaterally. HEART: Regular rate and rhythm. No gallops, murmurs, clicks or rubs. ABDOMEN: Soft and lax. No tenderness. No hepatosplenomegaly. No masses. EXTREMITIES: No cyanosis, clubbing or edema. LYMPHATICS: No peripheral lymphadenopathy. NEUROLOGICAL: Conscious, alert and oriented times three. No focal motor or sensory deficits. PSYCHIATRIC: Mood and affect appear normal. SKIN: No skin rash, bruise or purpuric eruption. PSYCHIATRIC: No anxiety or depression. DIAGNOSTIC DATA CBC showed white count 5.2, hemoglobin 16.7, hematocrit 48.3, platelet 198,000. ASSESSMENT Neutropenia with thrombocytopenia, could be due to his chronic alcohol use. His blood count improved after he was off the alcohol use. 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 The patient was referred to the [facility] at [facility] and they did not find a lot of information about this alteration. Patient is decreasing his alcohol intake but he has started to use CBD oil and since he has started the CBD oil in February his blood count is back to normal currently. I am planning to refer the patient back to his primary care provider, Dr. Li, and I will be more than happy to see him in the future if he has any deterioration of his blood count again. PLAN 1. Continue followup. 2. Patient to return back to Dr. Li. 3. Patient to return back to us if he has any abnormalities with his blood count in the future. 4. Patient is to contact us for any new concerns or complaints. YEIMI
[2017-11-27] MEDS ORDERED: IOPAMIDOL 76% 75 ML INFUS BTL 75 ML ONE (14:55)
== END 2018-01-23 13:21 | disposition home or self-care (01) ==
LOC: ONC 14:29
PROVIDERS: ATTEND Internal Medicine Hematology
DX: D69.6 Thrombocytopenia, unspecified (principal); D72.819 Decreased white blood cell count, unspecified; D72.821 Monocytosis (symptomatic); Z86.2 Personal history of diseases of the blood and blood-forming organs and certain disorders involving the immune mechanism; Z23 Encounter for immunization; R05 Cough; R06.02 Shortness of breath; R11.0 Nausea; R53.1 Weakness; R53.83 Other fatigue
CPT/HCPCS: 36415; 85025; 90471; 90674; 99212; Q9967

== ENCOUNTER → 2017-11-27 | Outpatient (CLI) | payer OTHER ==
[~2017-11-27] MED LIST changes: +HYDR-4309 PO; -HYDR-653 PO
[2017-11-27 14:12] LABS: PLATELET COUNT, AUTOMATED 220 K/uL (150-450)
--- NOTE | 2017-11-27 17:15 | RADIOLOGY IMAGING REPORT ---
FACILITY: [facility] - [place] PATIENT NAME: Azam Ahumada : 1985 MR: [id number] V: [id number] EXAM DATE: ORDERING PHYSICIAN: PHILIPP DAWSON TECHNOLOGIST: Location: [facility] - [place], [place] Patient: Azam Ahumada : 1985 Visit/Account:[id number] Date of Sevice: 11/27/2017 CT abdomen and pelvis with IV contrast Indication: Right lower abdominal and groin pain. Comparison: None available. . Technique: Axial CT images were obtained through the abdomen and pelvis during injection of nonioni c iodinated intravenous contrast. Reformatted coronal and sagittal images were also obtained. One of the following dose optimization techniques was utilized in the performance of this exam: Autom ated exposure control; adjustment of the mA and/or kV according to the patient's size; or use of an i terative reconstruction technique. Specific details can be referenced in the facility's radiology C T exam operational policy. Contrast: 75 ml of Isovue-370 IV contrast. Findings: Lower lung navarro: Limited views lower lung field are unremarkable. Liver: No focal parenchymal abnormality of the liver. Biliary: Gallbladder appears unremarkable as well as the intra and extra hepatic biliary system. Pancreas: Normal appearance. Spleen: Normal appearance. Adrenal glands: Unremarkable. Kidneys / retroperitoneum: No evidence of nephrolithiasis or hydronephrosis. No focal normality. Bowel / peritoneum / mesenteries: Colon shows no focal normality. The appendix is normal. Small bowel shows no focal normality or obstruction. Stomach is unremarkable. No free air, free fluid, fluid collections or areas of inflammation. Small umbilical hernia containin g fat. Lymph node assessment: No pathologic adenopathy identified. Pelvic structures: Appear unremarkable. Vessels: No significant atherosclerotic calcifications seen throughout a nonaneurysmal abdominal aort a and branches. Musculoskeletal / Body wall: No acute or aggressive osseous abnormality. Mild degenerative changes of spine. IMPRESSION: 1. No acute intra-abdominal abnormality. No acute or focal normality the right lower quadrant or rig ht groin. Report Dictated By: Ravinder Swartz at 11/27/2017 5:04 PM Report E-Signed By: Ravinder Swartz at 11/27/2017 5:10 PM WSN:[id number]
== END ==
LOC: LAB 13:44
PROVIDERS: ATTEND Internal Medicine
DX: R10.13 Epigastric pain (principal); R10.9 Unspecified abdominal pain
CPT/HCPCS: 36415; 74177; 81001; 82040; 82150; 82247; 82310; 82374; 82435; 82565; 82947; 83690; 84075; 84132; 84155; 84295; 84450; 84460; 84520; 85025

== ENCOUNTER → 2018-03-01 | Outpatient (CLI) | payer OTHER ==
[~2018-03-01] MED LIST changes: -HYDR-4309 PO; +HYDR-653 PO
[2018-03-01 11:32] LABS: PLATELET COUNT, AUTOMATED 210 K/uL (150-450)
--- NOTE | 2018-03-01 13:47 | RADIOLOGY IMAGING REPORT ---
FACILITY: [facility] PATIENT NAME: Azam Ahumada : 1985 MR: [id number] V: [id number] EXAM DATE: ORDERING PHYSICIAN: PHILIPP DAWSON TECHNOLOGIST: Location: [facility] Patient: Azam Ahumada : 1985 Visit/Account:[id number] Date of Sevice: 03/01/2018 Exam type: ACUTE ABDOMEN SERIES 3 VIEW History: Nausea vomiting and diarrhea and constipation left lower quadrant pain with burning Comparison: CT abdomen and pelvis November 27, 2017. And two-view chest March 21, 2017 Findings: Supine and upright views of the abdomen reveals a moderate amount of fecal material throughout colon which can be seen with constipation. An air-fluid level is noted in the nondistended stomach. Splee n appears enlarged. No pathologic intra-abdominal calcifications are seen. The visualized bones are unremarkable for age. PA view the chest reveals no evidence of acute pulmonary consolidation. The cardiac silhouette appea rs normal in size. IMPRESSION: 1. Moderate amount of fecal material throughout colon which can be seen with constipation Spleen appears enlarged Lungs free of consolidation Report Dictated By: Sully Robles MD at 03/01/2018 1:39 PM Report E-Signed By: Sully Robles MD at 03/01/2018 1:42 PM WSN:[email or web address]
== END ==
LOC: LAB 10:59
PROVIDERS: ATTEND Internal Medicine
DX: R16.1 Splenomegaly, not elsewhere classified (principal); F41.9 Anxiety disorder, unspecified; R10.9 Unspecified abdominal pain; Z86.2 Personal history of diseases of the blood and blood-forming organs and certain disorders involving the immune mechanism
CPT/HCPCS: 36415; 74022; 81001; 82040; 82247; 82310; 82374; 82435; 82565; 82947; 84075; 84132; 84153; 84155; 84295; 84443; 84450; 84460; 84520; 85025

== ENCOUNTER 2018-05-15 14:18 | Emergency (ER) | payer OTHER ==
--- NOTE | 2018-05-15 14:26 | ER Report ---
History and Physical Time Seen By MD: 14:26 HPI/ROS CHIEF COMPLAINT: Fall, hit head, right hand pain HISTORY OF PRESENT ILLNESS: 32-year-old male patient presents to emergency room with complaint of a fall resulting hitting his head. Patient states that he was not knocked out but states that he was unable to get up and sewn power. He states this occurred last night while he was ice skating. Patient states that he did go to work today and has had persistent headache, no nausea or vomiting. Patient states he has taken Tylenol 2 as well as ibuprofen. Patient states that he also has some right hand pain. He states that he heard at work a few weeks ago and then reinjured it this past weekend when he was snowshoeing. Patient denies any numbness tingling to the hand. He is able to move all fingers without any difficulties. REVIEW OF SYSTEMS: Respiratory: No cough, no dyspnea. Cardiovascular: No chest pain, no palpitations. Gastrointestinal: No vomiting, no abdominal pain. Musculoskeletal: As noted above Allergies: Coded Allergies: No Known Drug Allergies (Unverified , 10/19/17) Home Meds Active Scripts Ketorolac Tromethamine (KETOROLAC TROMETHAMINE) 10 Mg Tab, 10 MG PO Q6H, #20 TAB Prov:LINDA STEPHENS VINCE 05/15/18 Reported Medications Multivitamin With Minerals (MULTIPLE VITAMIN) 1 Each Tablet, 1 EACH PO DAILY, TAB 10/19/17 Past Medical/Surgical History Patient has a past medical history of ITP, alcohol use, chemotherapy in 2014. Patient has a surgical history of right meniscus surgery, bone marrow biopsy 2 Reviewed Nurses Notes: Yes Hx Smoking: Yes (8-9 YEARS 1PPD) Smoking Status: Former Smoker Exposure to Second Hand Smoke?: No Hx Substance Use Disorder: No Hx Alcohol Use: Yes Constitutional Vital Sign - Last 24 Hours 05/15/18 05/15/18 14:28 15:30 Temp 98.0 Pulse 80 Resp 18 B/P (MAP) 134/66 142/88 (106) Pulse Ox 93 O2 Delivery Room Air Physical Exam General Appearance: The patient is alert, has no immediate need for airway protection and no current signs of toxicity. Eyes: Pupils equal and round no injection. ENT: Tympanic membranes are pearly-chow, auditory canals are patent, mucous membranes are moist. Respiratory: Chest is non tender, lungs are clear to auscultation. Cardiac: regular rate and rhythm Gastrointestinal: Abdomen is soft and non tender, no masses, bowel sounds normal. Musculoskeletal: Neck: Neck is supple and non tender. Extremities have full range of motion and are non tender. Skin: No rashes or lesions. Neuro: Patient is alert and oriented 4, cranial nerves II through XII grossly intact. DIFFERENTIAL DIAGNOSIS: After history and physical exam differential diagnosis was considered for head injury including but not limited to concussion, skull fracture, intraparenchymal contusion, subarachnoid, subdural and epidural hematoma. Medical Decision Making EKG/Imaging Imaging EXAMINATION: CT HEAD AND CERVICAL SPINE WITHOUT CONTRAST COMPARISON: None available HISTORY: Fall. Head and neck pain for one day. PROCEDURE: Noncontrast CT from the vertex through the skull base and multiplanar noncontrast cervical spine. One of the following dose optimization techniques was utilized in the performance of this exam: Automated exposure control; adjustment of the mA and/or kV according to the patient's size; or use of an iterative reconstruction technique. Specific details can be referenced in the facility's radiology CT exam operational policy. FINDINGS: CT head without contrast: Brain volume: Age-appropriate. Hemorrhage/extra-axial fluid: None. Mass effect/midline shift/edema: None. Ischemia: Chow-white differentiation is preserved. Ventricles and basal cisterns: Within normal limits. Posterior fossa: Negative. Vessels: Negative. Calvarium, skull base, and scalp: Negative. Visualized sinuses and orbits: Within normal limits. CT cervical spine without contrast: Alignment: Within normal limits. Cranio-cervical junction: Within normal limits. Vertebral bodies: Negative. Posterior elements: Negative. Disc spaces: Negative. Hardware: None. Soft tissues: Negative. Visualized upper chest: Negative. IMPRESSION: 1. Negative noncontrast head CT. 2. Negative CT cervical spine. Report Dictated By: Fredis Ferrer MD at 05/15/2018 3:17 PM Report E-Signed By: Fredis Ferrer MD at 05/15/2018 3:28 PM EXAMINATION: Right hand 3 views HISTORY: Right hand pain. COMPARISON: None. FINDINGS: No evidence of acute fracture or dislocation about the right hand. Normal alignment. Joint spaces are preserved. Soft tissues are unremarkable. IMPRESSION: Negative right hand. Report Dictated By: Parviz Dooley MD at 05/15/2018 2:55 PM Report E-Signed By: Parviz Dooley MD at 05/15/2018 2:56 PM ED Course/Re-evaluation ED Course Patient was admitted in exam room, history and physical were obtained. Differential diagnoses were considered. On examination lungs are clear, heart is regular, abdomen soft nontender. Patient had no obvious tenderness to palpation to the leg. Patient is also complaining about pain to the hand. An x-ray of the right hand was done as well as CT scan of the head and cervical spine. Imaging results were negative. Neuro exam the patient was completely intact. I believe he has a concussion. I discussed the findings with the patient. We will ahead and put him on an anti-inflammatory, Toradol, and have him follow-up with his primary care provider week. He states is fluid intake, get plenty of rest. We'll go ahead and ice his hand. He is to return to emergency room if condition worsens. Patient was given a list of symptoms to monitor for and follow-up if they occur. With him present to the emergency room almost 24 hours after original injury I have very low suspicion that is going to occur. Patient is discharged home this time he is to follow-up with his primary care provider in one week if symptoms persist. Patient verbalized understanding and agreement with plan. Decision to Disposition Date: May 15, 2018 Decision to Disposition Time: 15:44 Depart Departure Latest Vital Signs Vital Signs Date Time Temp Pulse Resp B/P (MAP) Pulse Ox O2 Delivery O2 Flow Rate FiO2 05/15/18 15:30 142/88 (106) 05/15/18 14:28 98.0 80 18 93 Room Air Impression: Primary Impression: Concussion Additional Impression: Hand contusion Condition: Improved Disposition: HOME OR SELF-CARE Referrals: PHILIPP DAWSON MD (PCP) New Scripts Ketorolac Tromethamine (KETOROLAC TROMETHAMINE) 10 Mg Tab 10 MG PO Q6H, #20 TAB Prov: LINDA STEPHENS VINCE 05/15/18 Patient Instructions: Concussion (ED) Additional Instructions: Get plenty of rest. Limit activity by pain. Limit TV and computer time. Monitor for confusion, increased irritability, uncontrollable vomiting, worsening headache or difficulty to arouse. Return to the ER if those are to occur. Follow up with your primary care provider in the next week. Problem Qualifiers Primary Impression: Concussion Encounter type: initial encounter Loss of consciousness presence/duration: without LOC Qualified Codes: S06.0X0A - Concussion without loss of consciousness, initial encounter Additional Impression: Hand contusion Encounter type: initial encounter Laterality: right Qualified Codes: S60.221A - Contusion of right hand, initial encounter LINDA STEPHENS May 15, 2018 14:26
--- NOTE | 2018-05-15 15:01 | RADIOLOGY IMAGING REPORT ---
FACILITY: [facility] - [place] PATIENT NAME: Azam Ahumada : 1985 MR: [id number] V: [id number] EXAM DATE: ORDERING PHYSICIAN: LINDA STEPHENS TECHNOLOGIST: Location: [facility] Patient: Azam Ahumada : 1985 Visit/Account:[id number] Date of Sevice: 05/15/2018 EXAMINATION: Right hand 3 views HISTORY: Right hand pain. COMPARISON: None. FINDINGS: No evidence of acute fracture or dislocation about the right hand. Normal alignment. Joint spaces a re preserved. Soft tissues are unremarkable. IMPRESSION: Negative right hand. Report Dictated By: Parviz Dooley MD at 05/15/2018 2:55 PM Report E-Signed By: Parviz Dooley MD at 05/15/2018 2:56 PM WSN:[id number]
[2018-05-15 15:30] VITALS: BP 142/88
--- NOTE | 2018-05-15 15:33 | RADIOLOGY IMAGING REPORT ---
[place] [facility] [place]: Azam Ahumada : 1985 MR: [id number] V: [id number] EXAM DATE: ORDERING PHYSICIAN: LINDA STEPHENS TECHNOLOGIST: Location: [facility] Patient: Azam Ahumada : 1985 Visit/Account:[id number] Date of Sevice: 05/15/2018 EXAMINATION: CT HEAD AND CERVICAL SPINE WITHOUT CONTRAST COMPARISON: None available HISTORY: Fall. Head and neck pain for one day. PROCEDURE: Noncontrast CT from the vertex through the skull base and multiplanar noncontrast cervical spine. One of the following dose optimization techniques was utilized in the performance of this exa m: Automated exposure control; adjustment of the mA and/or kV according to the patient's size; or use of an iterative reconstruction technique. Specific details can be referenced in the facility's rad ioly CT exam operational policy. FINDINGS: CT head without contrast: Brain volume: Age-appropriate. Hemorrhage/extra-axial fluid: None. Mass effect/midline shift/edema: None. Ischemia: Chow-white differentiation is preserved. Ventricles and basal cisterns: Within normal limits. Posterior fossa: Negative. Vessels: Negative. Calvarium, skull base, and scalp: Negative. Visualized sinuses and orbits: Within normal limits. CT cervical spine without contrast: Alignment: Within normal limits. Cranio-cervical junction: Within normal limits. Vertebral bodies: Negative. Posterior elements: Negative. Disc spaces: Negative. Hardware: None. Soft tissues: Negative. Visualized upper chest: Negative. IMPRESSION: 1. Negative noncontrast head CT. 2. Negative CT cervical spine. Report Dictated By: Fredis Ferrer MD at 05/15/2018 3:17 PM Report E-Signed By: Fredis Ferrer MD at 05/15/2018 3:28 PM WSN:[id number]
--- NOTE | 2018-05-15 15:34 | RADIOLOGY IMAGING REPORT ---
FACILITY: [facility] PATIENT NAME: Azam Ahumada : 1985 MR: [id number] V: [id number] EXAM DATE: ORDERING PHYSICIAN: LINDA STEPHENS TECHNOLOGIST: [place] [facility] [place]: Azam Ahumada : 1985 Visit/Account:[id number] Date of Sevice: 05/15/2018 EXAMINATION: CT HEAD AND CERVICAL SPINE WITHOUT CONTRAST COMPARISON: None available HISTORY: Fall. Head and neck pain for one day. PROCEDURE: Noncontrast CT from the vertex through the skull base and multiplanar noncontrast cervical spine. One of the following dose optimization techniques was utilized in the performance of this exa m: Automated exposure control; adjustment of the mA and/or kV according to the patient's size; or use of an iterative reconstruction technique. Specific details can be referenced in the facility's rad ioly CT exam operational policy. FINDINGS: CT head without contrast: Brain volume: Age-appropriate. Hemorrhage/extra-axial fluid: None. Mass effect/midline shift/edema: None. Ischemia: Chow-white differentiation is preserved. Ventricles and basal cisterns: Within normal limits. Posterior fossa: Negative. Vessels: Negative. Calvarium, skull base, and scalp: Negative. Visualized sinuses and orbits: Within normal limits. CT cervical spine without contrast: Alignment: Within normal limits. Cranio-cervical junction: Within normal limits. Vertebral bodies: Negative. Posterior elements: Negative. Disc spaces: Negative. Hardware: None. Soft tissues: Negative. Visualized upper chest: Negative. IMPRESSION: 1. Negative noncontrast head CT. 2. Negative CT cervical spine. Report Dictated By: Fredis Ferrer MD at 05/15/2018 3:17 PM Report E-Signed By: Fredis Ferrer MD at 05/15/2018 3:28 PM WSN:[id number]
[2018-05-15] MEDS ORDERED: KET10 PO (15:43)
== END 2018-05-15 15:49 | disposition home or self-care (01) ==
LOC: ER 14:28
DX: S06.0X0A Concussion without loss of consciousness, initial encounter (principal); S60.221A Contusion of right hand, initial encounter
CPT/HCPCS: 70450; 72125; 99284

== ENCOUNTER 2018-07-28 19:29 | Emergency (ER) | payer OTHER ==
[~2018-07-28 19:29] MED LIST changes: -DIPH0.5D12 IM; +DIPH0.5S2 IM; +KET10 PO
[2018-07-28] MEDS ORDERED: KETOROLAC 30 MG/ML VIAL IVP ONE (19:40)
[2018-07-28] MEDS ORDERED: NS(*) 0.9% 1000 ML BAG 1,000 ML IV ONE (19:40)
[2018-07-28] MEDS ORDERED: ONDANSETRON 4 MG/2 ML VIAL IVP ONE (19:40)
--- NOTE | 2018-07-28 19:40 | ER Report ---
History and Physical Time Seen By MD: 19:39 HPI/ROS CHIEF COMPLAINT:? Seizure versus syncope HISTORY OF PRESENT ILLNESS: 32-year-old male presents after an episode in the bathroom where he had severe vomiting and abdominal cramps. He was hype rventilating and carpal pedal spasm. He had a shooting pain in his abdomen into his spine. Subsequent fell off the toilet in the bathroom. His will body locked up with an acute spasm. He is no history of seizures. He did not bite his tongue. He was not incontinent of stool or urine. EMS was called to the scene. He came in by private auto for further evaluation. Patient states he was out mowing the yard earlier today. He denies consumption of bad food or exposure to ill contacts. Vital signs are stable on arrival, patient afebrile, pulse ox is normal. REVIEW OF SYSTEMS: Respiratory: No cough, no dyspnea. Cardiovascular: No chest pain, no palpitations. Gastrointestinal: As above Musculoskeletal: No back pain. Allergies: Coded Allergies: No Known Drug Allergies (Unverified , 07/28/18) Home Meds Active Scripts Ketorolac Tromethamine (KETOROLAC TROMETHAMINE) 10 Mg Tab, 10 MG PO Q6H, #20 TAB Prov:LINDA STEPHENS VINCE 05/15/18 Reported Medications Multivitamin With Minerals (MULTIPLE VITAMIN) 1 Each Tablet, 1 EACH PO DAILY, TAB 10/19/17 Past Medical/Surgical History PAST MEDICAL HISTORY 1. History of ITP in 2014. 2. Anxiety and depression. 3. Sinusitis. PAST SURGICAL HISTORY 1. Right knee surgery for meniscus repair. 2. Bone marrow biopsy in 2014. FAMILY HISTORY Maternal grandfather had leukemia. SOCIAL HISTORY Patient drinks about a six pack of beer daily. He is a never smoker. Reviewed Nurses Notes: Yes Old Medical Records Reviewed: Yes Hx Smoking: Yes (8-9 YEARS 1PPD) Smoking Status: Former Smoker Exposure to Second Hand Smoke?: No Hx Substance Use Disorder: No Hx Alcohol Use: Yes Constitutional Vital Sign - Last 24 Hours 07/28/18 07/28/18 07/28/18 07/28/18 19:36 19:36 19:59 20:00 Temp 98.9 Pulse 82 81 Resp 20 B/P (MAP) 120/98 120/98 (105) 114/75 (88) Pulse Ox 96 96 O2 Delivery Room Air 07/28/18 07/28/18 20:29 20:30 Pulse 89 B/P (MAP) 126/68 (87) Pulse Ox 95 Intake and Output 07/28/18 07/28/18 07/29/18 15:00 23:00 07:00 Intake Total 1000 ml Balance 1000 ml Physical Exam General Appearance: The patient is alert, has no immediate need for airway protection and no current signs of toxicity. Vital signs stable, afebrile, pulse ox normal HEENT: Pupils equal and round no injection. TMs normal, oropharynx without dental trauma, no tongue bite valdez Respiratory: Chest is non tender, lungs are clear to auscultation. No chest wall tenderness Cardiac: regular rate and rhythm Gastrointestinal: Abdomen is soft and non tender, no masses, bowel sounds normal., No incontinence of urine Musculoskeletal: Neck: Neck is supple and non tender. Extremities have full range of motion and are non tender. Skin: No rashes or lesions. Neuro: Alert and oriented 3, cranial nerves II through XII intact motor 5/5 pugger helper, sensory intact to light touch 4 DIFFERENTIAL DIAGNOSIS: After history and physical exam differential diagnosis was considered for a seizure including but not limited to electrolyte abnormality, alcohol withdrawal, medication noncompliance, head injury, hyperventilation syndrome, carpopedal spasm, syncope, vasovagal syncope and breakthrough seizure. Medical Decision Making Data Points Result Diagram: 07/28/18192907/28/181929 Laboratory Hematology Test 07/28/18 19:30 Red Blood Count 5.76 M/uL (4.00-5.60) Mean Corpuscular Volume 88.2 fL (80.0-96.0) Mean Corpuscular Hemoglobin 30.6 pg (26.0-33.0) Mean Corpuscular Hemoglobin Concent 34.7 g/dL (32.0-36.0) Red Cell Distribution Width 12.4 % (11.5-14.5) Mean Platelet Volume 10.9 fL (7.2-11.1) Neutrophils (%) (Auto) 87.3 % (39.4-72.5) Lymphocytes (%) (Auto) 6.7 % (17.6-49.6) Monocytes (%) (Auto) 4.7 % (4.1-12.4) Eosinophils (%) (Auto) 1.0 % (0.4-6.7) Basophils (%) (Auto) 0.3 % (0.3-1.4) Nucleated RBC Relative Count (auto) 0.0 /100WBC Neutrophils # (Auto) 10.4 K/uL (2.0-7.4) Lymphocytes # (Auto) 0.8 K/uL (1.3-3.6) Monocytes # (Auto) 0.6 K/uL (0.3-1.0) Eosinophils # (Auto) 0.1 K/uL (0.0-0.5) Basophils # (Auto) 0.0 K/uL (0.0-0.1) Nucleated RBC Absolute Count (auto) 0.00 K/uL Sodium Level 140 mmol/L (137-145) Potassium Level 3.3 mmol/L (3.5-5.0) Chloride Level 104 mmol/L (98-107) Carbon Dioxide Level 23 mmol/L (22-30) Blood Urea Nitrogen 15 mg/dl (9-21) Creatinine 0.90 mg/dl (0.66-1.25) Glomerular Filtration Rate Calc > 60.0 Random Glucose 107 mg/dl (75-110) Calcium Level 9.4 mg/dl (8.4-10.2) Magnesium Level 1.8 mg/dl (1.7-2.2) Total Bilirubin 1.2 mg/dl (0.2-1.3) Aspartate Amino Transf (AST/SGOT) 37 U/L (0-35) Alanine Aminotransferase (ALT/SGPT) 42 U/L (0-56) Alkaline Phosphatase 75 U/L (0-126) Total Protein 8.2 g/dl (6.3-8.2) Albumin 4.9 g/dl (3.5-5.0) Chemistry Test 07/28/18 19:30 White Blood Count 11.9 k/uL (4.5-11.0) Red Blood Count 5.76 M/uL (4.00-5.60) Hemoglobin 17.6 g/dL (14.0-18.0) Hematocrit 50.8 % (42.0-52.0) Mean Corpuscular Volume 88.2 fL (80.0-96.0) Mean Corpuscular Hemoglobin 30.6 pg (26.0-33.0) Mean Corpuscular Hemoglobin Concent 34.7 g/dL (32.0-36.0) Red Cell Distribution Width 12.4 % (11.5-14.5) Platelet Count 207 K/uL (150-450) Mean Platelet Volume 10.9 fL (7.2-11.1) Neutrophils (%) (Auto) 87.3 % (39.4-72.5) Lymphocytes (%) (Auto) 6.7 % (17.6-49.6) Monocytes (%) (Auto) 4.7 % (4.1-12.4) Eosinophils (%) (Auto) 1.0 % (0.4-6.7) Basophils (%) (Auto) 0.3 % (0.3-1.4) Nucleated RBC Relative Count (auto) 0.0 /100WBC Neutrophils # (Auto) 10.4 K/uL (2.0-7.4) Lymphocytes # (Auto) 0.8 K/uL (1.3-3.6) Monocytes # (Auto) 0.6 K/uL (0.3-1.0) Eosinophils # (Auto) 0.1 K/uL (0.0-0.5) Basophils # (Auto) 0.0 K/uL (0.0-0.1) Nucleated RBC Absolute Count (auto) 0.00 K/uL Glomerular Filtration Rate Calc > 60.0 Calcium Level 9.4 mg/dl (8.4-10.2) Magnesium Level 1.8 mg/dl (1.7-2.2) Total Bilirubin 1.2 mg/dl (0.2-1.3) Aspartate Amino Transf (AST/SGOT) 37 U/L (0-35) Alanine Aminotransferase (ALT/SGPT) 42 U/L (0-56) Alkaline Phosphatase 75 U/L (0-126) Total Protein 8.2 g/dl (6.3-8.2) Albumin 4.9 g/dl (3.5-5.0) EKG/Imaging EKG Interpretation 12 lead EK Rhythm: normal sinus rhythm [place]: normal QRS: normal ST segments: normal, no evidence of ischemia or dysrhythmia, no previous EKGs for comparison ED Course/Re-evaluation Clinical Indication for ER IV: Hydration, IV Access ED Course Patient was admitted to an examination room. H&P was done. The differential diagnoses was considered. On clinical examination. Patient is stable vital signs and no symptoms. Patient did have stomach cramps earlier. He was out mowing the lawn. Decision to Disposition Date: Jul 28, 2018 Decision to Disposition Time: 20:14 Depart Departure Latest Vital Signs Vital Signs Date Time Temp Pulse Resp B/P (MAP) Pulse Ox O2 Delivery O2 Flow Rate FiO2 07/28/18 20:30 126/68 (87) 07/28/18 20:29 89 95 07/28/18 19:36 98.9 20 Room Air Impression: Primary Impression: Hyperventilation syndrome Additional Impressions: Carpopedal spasm Stomach cramps Condition: Improved Disposition: HOME OR SELF-CARE Referrals: PHILIPP LI MD (PCP) Patient Instructions: Hyperventilation (ED) Additional Instructions: Drink plenty of fluids to stay well hydrated Follow-up with your primary care DR Li this next week, tell him about year. Postconcussive headaches Problem Qualifiers JAMES ROGERS DO Jul 28, 2018 19:40
[2018-07-28 19:57] LABS: PLATELET COUNT, AUTOMATED 207 K/uL (150-450)
[2018-07-28 20:30] VITALS: BP 126/68
--- NOTE | 2018-07-28 23:17 | EKG ---
FACILITY: [facility] [place] NAME: SANDRO MURPHY : [id number] MR: [id number] V: [id number] EXAM DATE: ORDERING PHYSICIAN: JAMES ROGERS TECHNOLOGIST: JEB Test Reason : SYNCOPE Blood Pressure : / mmHG Vent. Rate : 079 BPM Atrial Rate : 079 BPM P-R Int : 144 ms QRS Dur : 092 ms QT Int : 364 ms P-R-T Axes : 064 074 044 degrees QTc Int : 417 ms Normal sinus rhythm Normal ECG No previous ECGs available Confirmed by Marty Goss [id number] on 07/29/2018 7:28:31 AM Referred By: PHILIPP DAWSON Confirmed By:Marty Ignacio
== END 2018-07-28 20:39 | disposition home or self-care (01) ==
LOC: ER 19:39
DX: F45.8 Other somatoform disorders (principal); R29.0 Tetany; R10.9 Unspecified abdominal pain; W18.11XA Fall from or off toilet without subsequent striking against object, initial encounter; Y92.002 Bathroom of unspecified non-institutional (private) residence as the place of occurrence of the external cause; F10.20 Alcohol dependence, uncomplicated; Z87.891 Personal history of nicotine dependence
CPT/HCPCS: 83735; 85025; 93005; 96361; 96374; 96375; 99284; J1885; J2405; J7030; 82040; 82247; 82310; 82374; 82435; 82565; 82947; 84075; 84132; 84155; 84295; 84450; 84460; 84520